=== PATIENT | female | born 1995 ===

== ENCOUNTER 2017-07-02 15:18 | Emergency (ER) | payer MEDICAID, OTHER ==
[2017-07-02 15:37] VITALS: RESP 18
--- NOTE | 2017-07-02 16:30 | C.PDOC ---
History Of Present Illness Patient is a 22 year old female with no past medical history who presents to the ED with complaints of abdominal pain with defecation and bloody stool that has been on going for the past 6-7 months. Patient reports she notes bloody stool and blood after wiping. Patient reports bowel movement with difficulty/ straining every 3 days. Patient admits to feeling dizzy after bowel movement but no syncope episode. Also, patient admits to nausea, one episode of vomiting on 06/29/17 and diffuse lower abdominal pain radiating to the lower back. Time Seen by Provider: 07/02/17 16:06 Chief Complaint (Nursing): Abdominal Pain History Per: Patient History/Exam Limitations: no limitations Onset/Duration Of Symptoms: Days Current Symptoms Are (Timing): Gone Severity: None Pain Scale Rating Of: 1 Recent travel outside of the [place]: No Additional History Per: Patient Past Medical History Vital Signs: Last Vital Signs Temp 99.1 F 07/02/17 15:30 Pulse 81 07/02/17 15:30 Resp 18 07/02/17 15:30 BP 130/87 07/02/17 15:30 Pulse Ox 99 07/02/17 17:33 Family History: States: Hypertension - Social History Hx Tobacco Use: No Hx Alcohol Use: No Hx Substance Use: No - Immunization History Hx Tetanus Toxoid Vaccination: No Hx Influenza Vaccination: No Hx Pneumococcal Vaccination: No Review Of Systems Constitutional: Positive for: Chills. Negative for: Fever, Sweats, Weakness, Malaise, Weight loss Cardiovascular: Negative for: Chest Pain, Palpitations, Edema, Light Headedness Respiratory: Negative for: Cough, Shortness of Breath, Hemoptysis, SOB with Excertion, Wheezing Gastrointestinal: Positive for: Nausea, Vomiting, Constipation, Hematochezia. Negative for: Hematemesis Genitourinary: Positive for: Incontinence. Negative for: Dysuria, Frequency, Hematuria, Vaginal Discharge, Vaginal Bleeding Musculoskeletal: Positive for: Back Pain Skin: Negative for: Rash Neurological: Positive for: Dizziness Physical Exam - Physical Exam Appears: No Acute Distress Skin: Normal Color Head: Atraumatic, Normacephalic Eye(s): bilateral: Normal Inspection, EOMI Cardiovascular: Rhythm Regular, No Murmur Respiratory: Normal Breath Sounds, No Decreased Breath Sounds, No Accessory Muscle Use, No Rales, No Rhonchi, No Stridor, No Wheezing Gastrointestinal/Abdominal: Normal Exam, Bowel Sounds, Soft, No Tenderness, No Distention, No Guarding, No Rebound Rectal: Normal Exam, Rectal Tone, Heme Negative, No Hemorrhoids, No Tenderness Back: Other (Lumbar spine curvature ) Neurological/Psych: Oriented x3, Normal Speech ED Course And Treatment - Laboratory Results Result Diagrams: 07/02/17 16:40 07/02/17 16:40 O2 Sat by Pulse Oximetry: 99 - Radiology CXR: Read By Radiologist CXR Interpretation: Yes: Other ( ) Progress Note: Patient was without abdominal pain during evaluation in the ED. Patient remained very comfortable Medical Decision Making Medical Decision Making: Abdominal Obstructive Series: Constipation. Nonobstructive bowel gas pattern. Clear lungs. Disposition Discussed With DrTroy: Rodrigo Bey - Disposition Referrals: [facility] [Provider Group] Ankit Keen MD [Staff Provider] - Disposition Time: 17:33 Condition: GOOD Additional Instructions: Please discharge patient home Please take Miralax daily till you have a bowel movement Please take Colace 100mg PO daily Please follow up [facility] in order to establish health care, Please return to the hospital if symptoms worsens in 2 days Prescriptions: Docusate Sodium [Colace] 100 mg PO DAILY 30 Days #30 capsule Polyethylene Glycol 3350 [Miralax] 17 gm PO DAILY #15 ml Instructions: Constipation, Adult (DC) Forms: [facility] (Turkmen), General Discharge Instructions - Clinical Impression Clinical Impression: Constipation
[2017-07-02 16:43] LABS: BASO % 0.7 % (0.0-2.0); EOS # 0.1 K/uL (0.0-0.7); HEMOGLOBIN 14.3 g/dL (11.0-16.0); LYMPH # 1.4 K/uL (1.0-4.3); LYMPH % 28.2 % (20.0-40.0); MEAN CELL VOLUME 92.4 fL (81.0-99.0); MEAN CORPUSCULAR HEMOGLOBIN 31.3 pg (27.0-31.0); MEAN CORPUSCULAR HGB CONC 33.9 g/dL (33.0-37.0); MEAN PLATELET VOLUME 8.9 fL (7.2-11.7); MONO # 0.5 K/uL (0.0-0.8); MONO % 10.1 % (0.0-10.0); RBC 4.57 Mil/uL (3.80-5.20); RED CELL DISTRIBUTION WIDTH 12.7 % (11.5-14.5); WHITE BLOOD COUNT 5.1 K/uL (4.8-10.8)
[2017-07-02 16:45] LABS: SQUAMOUS EPITHIAL 3 /hpf (0-5); URINE BACTERIA RARE (<OCC); URINE BILIRUBIN NEGATIVE (NEGATIVE); URINE BLOOD NEGATIVE (NEGATIVE); URINE CLARITY Clear (Clear); URINE COLOR Straw (YELLOW); URINE GLUCOSE (UA) NORMAL (Normal); URINE LEUKOCYTE ESTERASE NEG Leu/uL (Negative); URINE PROTEIN NEGATIVE (NEGATIVE); URINE UROBILINOGEN NORMAL mg/dL (0.2-1.0)
[2017-07-02 17:04] LABS: ALB/GLOB RATIO 1.1 (1.0-2.1); ALBUMIN 4.7 g/dL (3.5-5.0); ALT/SGPT 56 U/L (9-52); AST/SGOT 34 U/L (14-36); BLOOD UREA NITROGEN 8 mg/dL (7-17); CALCIUM 9.7 mg/dl (8.6-10.4); GFR AFRICAN-AMERICAN > 60; GFR NON-AFRICAN AMERICAN > 60; LIPASE 116 U/L (23-300)
--- NOTE | 2017-07-02 17:10 | RAD ---
PROCEDURE: Radiographs of the chest and abdomen (obstructive series) HISTORY: Abdominal pain COMPARISON: No prior. TECHNIQUE: AP radiograph of the chest, with upright and supine radiographs of the abdomen. FINDINGS: CHEST: Lungs: The lungs are well inflated. There is a small calcified granuloma in the right upper lobe. No focal consolidation. Cardiovascular: Normal size heart. No pulmonary vascular congestion. Pleura: No pleural fluid. No pneumothorax. Other findings: None. ABDOMEN AND PELVIS: Bowel: There is moderate amount of stool in the colon and rectum. No differential air-fluid levels. Free air: None. Bones: Unremarkable. Other findings: None. IMPRESSION: Constipation. Nonobstructive bowel gas pattern. Clear lungs.
[2017-07-02 17:49] VITALS: BP 109/74; PULSE 79; TEMP 99; O2SAT 100
== END 2017-07-02 17:50 | disposition home or self-care (01) ==
LOC: C.ER 15:18
DX: K59.00 Constipation, unspecified (principal)